=== PATIENT | female | born 1940 | race Caucasian/White ===

== ENCOUNTER 2016-09-08 07:24 | Day surgery (SDC) | payer MEDICARE, OTHER ==
[2016-09-08] MEDS ORDERED: Lidocaine Topical 2% 30 mL Jelly ONE (07:48)
== END 2016-09-08 23:59 | disposition home or self-care (01) ==
LOC: END 07:24
PROVIDERS: ATTEND Internal Medicine Gastroenterology
DX: K21.9 Gastro-esophageal reflux disease without esophagitis (principal); R49.0 Dysphonia